=== PATIENT | male | born 1950 | race Caucasian/White ===

== ENCOUNTER 2022-06-12 06:51 | Observation (INO) ==
--- NOTE | 2022-05-09 10:39 | PAT Medication Instructions ---
Medication Instructions Date of Service May 09, 2022 Home Medications Medication Instructions Recorded nitroglycerin 0.4 mg sublingual 0.4 mg sublingual Q5M PRN chest 04/30/21 tablet pain #25 tabs rosuvastatin 5 mg tablet 5 mg PO .COMPLEX #24 tabs 08/15/21 Incentive Spirometer #1 ea 02/28/22 albuterol sulfate 90 mcg/actuation 2 puff inhalation Q6H PRN 02/28/22 aerosol inhaler shortness of breath or wheezing #8.5 grams cholecalciferol (vitamin D3) 125 mcg (5,000 unit) capsule 125 mcg PO HS methadone 10 mg tablet 10 mg PO Q8H oxycodone-acetaminophen 5 mg-325 mg tablet 1 tab PO Q8H PRN Pain vitamin E (dl, acetate) 180 mg (400 unit) capsule 180 mg PO HS nitroglycerin 0.4 mg sublingual tablet 0.4 mg sublingual Q5M PRN chest pain rosuvastatin 5 mg tablet 5 mg PO .COMPLEX albuterol sulfate 90 mcg/actuation aerosol inhaler 2 puff inhalation Q6H PRN shortness of breath or wheezing ezetimibe 10 mg tablet 10 mg PO HS fluticasone fur. 100 mcg-umeclid 62.5 mcg-vilant 25 mcg inhalat.powder (Trelegy Ellipta) 1 inh inhalation QAM Continue as directed nitroglycerin 0.4 mg sublingual tablet 0.4 mg sublingual Q5M PRN chest pain (if needed) rosuvastatin 5 mg tablet 5 mg PO .COMPLEX STOP taking 2 weeks before surgery (or as soon as possible if surgery is within 2 weeks) vitamin E (dl, acetate) 180 mg (400 unit) capsule 180 mg PO HS Take morning of surgery With a small sip of water, OTHERWISE NOTHING TO EAT OR DRINK AFTER MIDNIGHT: methadone 10 mg tablet 10 mg PO Q8H oxycodone-acetaminophen 5 mg-325 mg tablet 1 tab PO Q8H PRN Pain (if needed) rosuvastatin 5 mg tablet 5 mg PO .COMPLEX albuterol sulfate 90 mcg/actuation aerosol inhaler 2 puff inhalation Q6H PRN shortness of breath or wheezing (use if needed; please bring rescue inhaler with you to hospital day of surgery if possible) fluticasone fur. 100 mcg-umeclid 62.5 mcg-vilant 25 mcg inhalat.powder (Trelegy Ellipta) 1 inh inhalation QAM Take evening before surgery cholecalciferol (vitamin D3) 125 mcg (5,000 unit) capsule 125 mcg PO HS methadone 10 mg tablet 10 mg PO Q8H oxycodone-acetaminophen 5 mg-325 mg tablet 1 tab PO Q8H PRN Pain (if needed) albuterol sulfate 90 mcg/actuation aerosol inhaler 2 puff inhalation Q6H PRN shortness of breath or wheezing (if needed) ezetimibe 10 mg tablet 10 mg PO HS Other Notes If you have any questions please call us at [phone] or [phone] or [phone] or [phone]
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
--- NOTE | 2022-05-16 15:14 | Electrocardiogram Report ---
Test Reason : Blood Pressure : / mmHG Vent. Rate : 080 BPM Atrial Rate : 080 BPM P-R Int : 136 ms QRS Dur : 082 ms QT Int : 380 ms P-R-T Axes : 083 078 076 degrees QTc Int : 438 ms Normal sinus rhythm Normal ECG No previous ECGs available Confirmed by Brennan Felix ([id number]) on 05/16/2022 3:14:39 PM Referred By: Sushil Santos Confirmed By:Gideon Felix
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
[~2022-06-12 06:51] MED LIST: ACETAMINOPHEN 500 MG TAB PO SCH; BUPIVACAINE 0.5 % 5 MG/1 ML PF 10ML VIAL ONE; CeleBREX 200 MG CAP PO SCH; FAMOTIDINE 20 MG TAB PO SCH; GABAPENTIN 300 MG CAP PO SCH; LR 15ML/HR IV SCH; METOCLOPRAMIDE HCL 10 MG TABLET PO SCH; TRANEXAMIC ACID 1,000 MG **IV Pre-op IV SCH; ceFAZolin 2000MG 2,000 MG/15 ML SYR IV SCH; dexAMETHasone 4 MG TAB PO SCH
[2022-06-12] MEDS ORDERED: fentaNYL citrate 100 MCG/2 ML VIAL ONE (07:22)
[2022-06-12] MEDS ORDERED: MIDAZOLAM HCL 1 MG/ML 2ML VIAL ONE (07:22)
[2022-06-12] MEDS ORDERED: SUGAMMADEX SODIUM 200 MG/2 ML VIAL IV ONE (07:25)
--- NOTE | 2022-06-12 07:25 | History & Physical Bridge Note ---
Date of Service June 12, 2022 History & Physical Bridge Note I have examined the patient, reviewed the History & Physical and in the interval since the performance of the History & Physical I have noted the following changes of clinical significance: no changes noted
[2022-06-12] MEDS ORDERED: NALOXONE HCL 0.4 MG/1 ML VIAL/CARP IV PRN ×2 (08:39→12:31)
[2022-06-12] MEDS ORDERED: ONDANSETRON INJ 2 MG/ML 2 ML VIAL IV PRN ×2 (08:39→12:31)
[2022-06-12] MEDS ORDERED: HYDROmorphone INJ 1 MG/ML SYRINGE IV PRN (08:39)
[2022-06-12] MEDS ORDERED: ATROPINE SULFATE 0.1 MG/ML 10ML SYR IV PRN (08:39)
[2022-06-12] MEDS ORDERED: LABETALOL HCL IV 5 MG/ML 20ML IV PRN (08:39)
[2022-06-12] MEDS ORDERED: fentaNYL citrate 100 MCG/2 ML VIAL IV PRN (08:39)
[2022-06-12] MEDS ORDERED: ePHEDrine sulfate 50 MG/ML AMP IV PRN (08:39)
[2022-06-12] MEDS ORDERED: PROMETHAZINE HCL 12.5 MG in SODIUM CHLORIDE 0.9% 50 ML IV PRN (08:39)
[2022-06-12] MEDS ORDERED: FLUMAZENIL 0.1 MG/1 ML 10 ML VIAL IV PRN (08:39)
[2022-06-12] MEDS ORDERED: ONDANSETRON INJ 2 MG/ML 2 ML VIAL ONE (09:39)
[2022-06-12] MEDS ORDERED: DEXAMETHASONE SOD INJ 4 MG/ML VIAL ONE (09:39)
[2022-06-12] MEDS ORDERED: SUCCINYLCHOLINE CHLORIDE 20 MG/ML 10 ML VIAL IV ONE (09:39)
[2022-06-12] MEDS ORDERED: PROPOFOL IV EMULSION 10 MG/ML 20 ML VIAL IV ONE (09:39)
[2022-06-12] MEDS ORDERED: ROCURONIUM BROMIDE 10 MG/ML 5 ML VIAL IV ONE (09:39)
[2022-06-12] MEDS ORDERED: GLYCOPYRROLATE 0.2 MG/ML VIAL ONE (09:39)
[2022-06-12] MEDS ORDERED: PHENYLEPHRINE 100MCG/ML 5ML SYR ONE (09:40)
--- NOTE | 2022-06-12 11:02 | Operative Report ---
Post Operative Report Pre & Post Diagnosis Operation Date: 06/12/22 09:05 Pre-Op Diagnosis: Left shoulder rotator cuff tear arthropathy Post-Op Diagnosis: Left shoulder rotator cuff tear arthropathy I identified the patient and participated in the time-out.: Yes Procedure Operation Date: 06/12/22 09:05 Actual Procedures Left reverse total shoulder arthroplasty (29376) - Sushil Santos M.D. Surgeon Sushil Santos Transaction Manager Simba Candelario PA-C Estimated Blood Loss 75 Findings Consistent with Post-Op Diagnosis Specimens None Drains None Anesthesia Type General Regional Complications none Disposition Disposition: Recovery Room Indications Mr. Hernandez is a 71-year-old male with chronic left shoulder pain and weakness after previous rotator cuff repair. History, clinical exam, and imaging were consistent with the above diagnosis. Risks, benefits, and alternatives of surgery were explained in detail. The patient understood all this and wished to proceed. Description of Procedure Components Implanted: Tornier Reverse Total Shoulder implants Perform glenoid baseplate: 29mm, 15 degree full wedge with 6.5mm central screw and 5.0mm peripheral screws Glenosphere: 39mm, +3mm, eccentric offset Ascend Flex humeral stem: 4B Standard length (78mm) Humeral tray: 1.5 mm offset, +0mm thickness Polyethylene insert: 39mm, +6mm thickness Patient was identified in the preoperative holding area. Operative extremity was marked. Regional blockade was given by the Anesthesia Staff. Patient was then brought back to the operating room, and general anesthesia was induced without complication. Appropriate weight-based dose of Ancef was infused intravenously for antibiotic prophylaxis. The patient was then placed in the beachchair position. Left arm was then prepped and draped in a standard sterile fashion using Chlorhexidine prep. A standard deltopectoral incision was made through the skin and subcutaneous tissue. The cephalic vein was identified and retracted medially. Small branches to the deltoid were coagulated as necessary. The clavipectoral fascia was then incised and the subdeltoid space was opened. The rotator cuff was found to be deficient, and I therefore decided to perform a reverse total shoulder arthroplasty as planned preoperatively. The biceps tendon was noted to be absent from the bicipital groove, consistent with a preoperative biceps tendon rupture. Therefore, no biceps tenodesis was performed. The remaining subscapularis tendon was elevated subperiosteally off of the lesser tuberosity. The glenohumeral joint was then dislocated, and large osteophytes were debrided with a ronguer. The intramedullary canal of the humerus was then opened with a canal finder. The humeral head cut was then made in the appropriate inclination and version using the cutting guide. The humeral canal was then sequentially broached to the appropriate size. A protective cap was then placed on top of the humeral trial. I then turned my attention to the glenoid. The proximal stump of the biceps tendon was excised, along with the labrum circumferentially around the glenoid. The Blueprint drill guide was then positioned on the glenoid, and the guidepin was then inserted. The 15 degree angled reamer was then inserted over the guidepin and an reamed to an appropriate depth. The central screw hole was drilled, and appropriate length 6.5mm central screw was selected. The baseplate was then implanted into place according to our preoperative Blueprint plan by tightening down the central screw. A peripheral 5mm nonlocking screw was placed postero-superiorly first for additional compression of the baseplate, and then additional locking 5 mm peripheral screws were placed to complete fixation of the baseplate. Glenosphere was then impacted and secured. A trial humeral tray and insert were placed on the trial humeral stem, and a trial reduction was carried out. Once I achieved acceptable joint stability and range of motion with the trial implants, the final humeral implants were assembled on the back table and then impacted into position. I then took the shoulder through full range of motion to ensure good stability and acceptable motion. Wound was then copiously irrigated with sterile saline. Deep fascia was closed with 0 V-lock suture. Subcutaneous tissue was closed with 2-0 V-lock, and skin was closed with 3-0 V-lock. Skin was then sealed with Dermabond. Sterile dressings were then applied with a waterproof silver-impregnated dressing, and the arm was placed into a sling. The patient was awakened from anesthesia and taken to the Post Anesthesia Care Unit in stable condition. There were no immediate complications from the procedure. I was present and scr ubbed for the entire procedure, with the exception of final skin closure and dressing application. Due to the complex nature of the procedure, the entire surgery was performed with the operational assistance of Simba Candelario PA-C. The entry level assistant manager, under direct supervision, was involved in the performance of all aspects of the surgical procedure including hemostasis, tissue incision and retraction, instrument management, patient positioning, and wound closure. I attest to the content of the Intraoperative Record and any orders documented therein. Any exceptions are noted below.
--- NOTE | 2022-06-12 12:07 | Anesthesiology Progress Note ---
Date of Service June 12, 2022 Anesthesia Post Procedure Vital Signs Vital Signs: Temp Pulse Resp BP Pulse Ox O2 Del Method O2 Flow Rate 06/12/22 11:50 36.6 C 78 15 134/75 94 Room Air 06/12/22 11:40 81 15 134/77 94 Room Air 06/12/22 11:30 76 15 148/77 H 100 Oxymask 4 06/12/22 11:20 74 13 173/90 H 100 Oxymask 6 06/12/22 11:14 36.0 C L 79 14 163/96 H 98 Oxymask 8 06/12/22 07:39 36.7 C 92 H 20 154/91 H 98 Room Air Pain Intensity Left Shoulder: Pain Intensity: 6 Transfer of Care Handoff Completed per policy Notes Mental Status: alert / awake / arousable Patient Amnestic to Procedure: Yes Nausea / Vomiting: adequately controlled Pain: adequately controlled Airway Patency, RR, SpO2: stable & adequate BP & HR: stable & adequate Hydration State: stable & adequate Anesthetic Complications: no major complications apparent
[2022-06-12] MEDS ORDERED: oxyCODONE HCL IR 5 MG TAB (IMMEDIATE RELEASE) PO PRN (12:31)
[2022-06-12] MEDS ORDERED: METOCLOPRAMIDE HCL INJ 5 MG/ML 2 ML VIAL IV PRN (12:31)
[2022-06-12] MEDS ORDERED: NITROGLYCERIN SL 0.4 MG/TAB TAB SL PRN (12:31)
[2022-06-12] MEDS ORDERED: ALBUTEROL HFA 8 GM INHALER INH PRN (12:31)
[2022-06-12] MEDS ORDERED: bisacodyL 10 MG SUPP PR PRN (12:31)
[2022-06-12] MEDS ORDERED: MAGNESIUM HYDROXIDE SUSP 30 ML UDC PO PRN (12:31)
[2022-06-12] MEDS ORDERED: ROSUVASTATIN CALCIUM 5 MG TAB PO SCH (13:00)
[2022-06-12] MEDS: SODIUM CHLORIDE 0.9% 1000ML 1,000 ML IV SCH ×2 (13:59→23:39)
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
[2022-06-12] MEDS: ACETAMINOPHEN 500 MG TAB PO SCH ×3 (14:30→23:40)
[2022-06-12] MEDS: IBUPROFEN 600 MG TAB PO SCH ×2 (14:33→21:18)
[2022-06-12] MEDS: METHADONE HCL 10 MG TAB PO SCH ×2 (14:33→21:18)
--- NOTE | 2022-06-12 16:12 | XRay Report ---
XR shoulder LT min 2V routine CLINICAL HISTORY: Post shoulder surgery COMPARISON: None FINDINGS: Intracanalicular electrodes are incidentally noted. Alignment of the left shoulder arthrop lasty is anatomic. No periprosthetic fracture or unexpected radiopaque foreign body. IMPRESSION: Expected findings following total left shoulder arthroplasty. ACT 112: Negative or not required by law. Electronically signed by: Nura Tolbert M.D. 06/12/2022 4:11 PM
[2022-06-12] MEDS: ceFAZolin 2000MG 2,000 MG/15 ML SYR IV SCH (18:17)
[2022-06-12] MEDS ORDERED: SENNA 8.6 MG TAB PO SCH (21:00)
[2022-06-12] MEDS ORDERED: TOCOPHERYL, DL-ALPHA 400 UNITS 180 MG CAP PO SCH (21:00)
[2022-06-12] MEDS ORDERED: CHOLECALCIFEROL 5,000 UNITS 125 MCG TAB PO SCH (21:00)
[2022-06-12] MEDS ORDERED: EZETIMIBE 10 MG TABLET PO SCH (21:00)
[2022-06-12] MEDS: DOCUSATE SODIUM 100 MG CAP PO SCH (21:18)
[2022-06-13] MEDS: IBUPROFEN 600 MG TAB PO SCH ×2 (02:18→09:49)
[2022-06-13] MEDS: ceFAZolin 2000MG 2,000 MG/15 ML SYR IV SCH (02:19)
[2022-06-13] MEDS: ACETAMINOPHEN 500 MG TAB PO SCH (05:59)
[2022-06-13] MEDS: METHADONE HCL 10 MG TAB PO SCH (06:00)
[2022-06-13 07:45] LABS: Basophils # (auto) 0.01 K/uL (0-0.2); Basophils % (auto) 0.1 %; Hematocrit (blood only) 37.2 % (40.1-51.0); Hemoglobin 12.5 g/dl (14.0-18.0); Immature Granulocytes # (auto) 0.04 K/uL (0.00-0.02); Immature Granulocytes % (auto) 0.3 %; Lymphocytes # (auto) 1.92 K/uL (1.2-3.4); Lymphocytes % (auto) 16.5 %; Mean Corpuscular Hemoglobin 27.8 pg (25.0-34.0); Mean Corpuscular Hgb Conc 33.6 g/dL (32.0-36.0); Mean Corpuscular Volume 82.7 fL (80.0-100.0); Mean Platelet Volume 8.8 fL (9.4-12.4); Monocytes # (auto) 1.14 K/uL (0.24-0.82); Monocytes % (auto) 9.8 %; Neutrophils # (auto) 8.52 K/uL (1.4-6.5); Neutrophils % (auto) 73.3 %; Platelet Count 226 K/uL (130-400); RDW Coefficient of Variation 12.5 % (11.5-14.5); White Blood Count 11.63 K/ul (4.8-10.8)
[2022-06-13 08:04] LABS: Calcium 8.6 mg/dl (8.5-10.1); Creatinine Clr Calc Pharmacy 88.5 ml/min; Est GFR (African American) 105.5 ml/min; Potassium 3.9 mmol/L (3.5-5.1)
[2022-06-13] MEDS ORDERED: MULTIVITAMIN TAB PO SCH (09:00)
[2022-06-13] MEDS ORDERED: FLUTICASONE FUROATE 100MCG 14 PUFFS/INHALER INH SCH (09:00)
[2022-06-13] MEDS ORDERED: NON-FORMULARY MEDICATION (Fluticasone-Umeclidin-Vilanter [Trelegy Ellipta] 100-62.5-25 mcg INH SCH (09:00)
[2022-06-13] MEDS ORDERED: ASPIRIN 325 MG ECTAB PO SCH (09:00)
[2022-06-13] MEDS ORDERED: UMECLIDINIUM/VILANTEROL 62.5/25MCG 7 PUFFS/INHALER INH SCH (09:00)
--- NOTE | 2022-06-13 09:26 | Orthopedic Progress Note ---
Date of Service June 13, 2022 Assessment & Plan (1) Left rotator cuff tear arthropathy: Plan: Postop day 1 status post left reverse total shoulder arthroplasty PT/OT protocols. Nonweightbearing left upper extremity. DVT prophylaxis-aspirin p.o. daily, SCDs Pain management as written. DC planning-patient is planning for discharge to home with outpatient PT upon discharge. Plan for discharge to home today. Admission and Anticipated Discharge Date Admission Date: June 12, 2022 Subjective Postop day 1 Patient is sitting up in his chair at the bedside finishing his breakfast. He has no complaints this morning. Pain is controlled. He denies shortness of breath, chest pain. He is hoping to go home today. Physical Exam Physical Exam: Silverlon dressing is intact. Sling is in place. Patient is able to take his hand through gentle range of motion with his wrist and his fingers. He continues with decreased sensation in all of his fingers secondary to his nerve block. Capillary refill is less than 2 seconds. Results & Data ([facility]) Vital Signs (Past 12 Hours) Vital Signs Temp Pulse Pulse Resp BP Pulse Ox O2 Del Method 06/13/22 07:59 36.6 C 82 17 122/62 94 Room Air 06/13/22 04:58 36.4 C L 73 16 150/74 H 96 Nasal Cannula 06/13/22 00:17 36.4 C L 70 18 128/72 97 Nasal Cannula O2 Flow Rate 06/13/22 07:59 06/13/22 04:58 2 06/13/22 00:17 2 Laboratory Results Laboratory Results WBC 11.63 K/ul (4.8-10.8) H 06/13/22 07:03 RBC 4.50 M/uL (4.63-6.08) L 06/13/22 07:03 Hgb 12.5 g/dl (14.0-18.0) L 06/13/22 07:03 Hct 37.2 % (40.1-51.0) L 06/13/22 07:03 MCV 82.7 fL (80.0-100.0) 06/13/22 07:03 MCH 27.8 pg (25.0-34.0) 06/13/22 07:03 MCHC 33.6 g/dL (32.0-36.0) 06/13/22 07:03 RDW Std Deviation 38.0 fL (36.4-46.3) 06/13/22 07:03 RDW Coeff of Justine 12.5 % (11.5-14.5) 06/13/22 07:03 Plt Count 226 K/uL (130-400) 06/13/22 07:03 MPV 8.8 fL (9.4-12.4) L 06/13/22 07:03 Immature Gran % (Auto) 0.3 % 06/13/22 07:03 Neut % (Auto) 73.3 % 06/13/22 07:03 Lymph % (Auto) 16.5 % 06/13/22 07:03 Ogle % (Auto) 9.8 % 06/13/22 07:03 Eos % (Auto) 0.0 % 06/13/22 07:03 Baso % (Auto) 0.1 % 06/13/22 07:03 Neut # (Auto) 8.52 K/uL (1.4-6.5) H 06/13/22 07:03 Lymph # (Auto) 1.92 K/uL (1.2-3.4) 06/13/22 07:03 Ogle # (Auto) 1.14 K/uL (0.24-0.82) H 06/13/22 07:03 Eos # (Auto) 0.00 K/uL (0-0.50) 06/13/22 07:03 Baso # (Auto) 0.01 K/uL (0-0.2) 06/13/22 07:03 Immature Gran # (Auto) 0.04 K/uL (0.00-0.02) H 06/13/22 07:03 Sodium 139 mmol/L (136-145) 06/13/22 07:03 Potassium 3.9 mmol/L (3.5-5.1) 06/13/22 07:03 Chloride 106 mmol/L (98-107) 06/13/22 07:03 Carbon Dioxide 28 mmol/L (21-32) 06/13/22 07:03 Anion Gap 5 (3-11) 06/13/22 07:03 BUN 12 mg/dl (6-23) 06/13/22 07:03 Creatinine 0.75 mg/dl (0.6-1.4) 06/13/22 07:03 Est Cr Clr Drug Dosing 88.5 ml/min 06/13/22 07:03 Est GFR ( Amer) 105.5 ml/min 06/13/22 07:03 Est GFR (Non-Af Amer) 91.0 ml/min 06/13/22 07:03 BUN/Creatinine Ratio 16.0 (10-20) 06/13/22 07:03 Glucose 118 mg/dl (70-99(Fasting)) H 06/13/22 07:03 Calcium 8.6 mg/dl (8.5-10.1) 06/13/22 07:03 SARS-CoV-2, RNA, NAAT NEGATIVE (NEGATIVE) 06/12/22 Unknown Impressions Shoulder X-Ray 06/12/22 11:22 XR shoulder LT min 2V routine CLINICAL HISTORY: Post shoulder surgery COMPARISON: None FINDINGS: Intracanalicular electrodes are incidentally noted. Alignment of the left shoulder arthroplasty is anatomic. No periprosthetic fracture or unexpected radiopaque foreign body. IMPRESSION: Expected findings following total left shoulder arthroplasty. ACT 112: Negative or not required by law. Electronically signed by: Nura Tolbert M.D. 06/12/2022 4:11 PM
[2022-06-13] MEDS: DOCUSATE SODIUM 100 MG CAP PO SCH (09:48)
--- NOTE | 2022-06-18 17:05 | Discharge Summary ---
Date of Service June 18, 2022 Admission HPI Per Admitting Provider Mr. Hernandez returns. Again, he is a 71-year-old [id number] male with acute on chronic left shoulder pain and weakness. He has been previously treated by Dr. Becerra in [place]. He states that he previous underwent a rotator cuff repair in 2016 for chronic pain without any acute injury. He does report that he did well after that surgery, and it helped with his pain that he was having. He notes that he did tear his biceps this past spring. He reports that over the past year, this left shoulder has gotten quite painful again, without any new injury. He has had [address] Becerra over the past year, the last one being in the springtime. These injections typically give him about 2 to 3 months improvement in his pain. He then had an acute injury at the end of January when he had a ground-level fall onto an outstretched left arm. He noticed significant worsening of his pain and weakness with that fall. He does note that he had difficulty with raising his arm overhead even before the fall, but now he has significantly decreased strength and significantly worsened pain. Of note, he does have issues with chronic pain. He previously had a morphine pump and spinal stimulator implanted, both of which are not currently functioning but are still in place. He is currently on OxyContin and methadone for his chronic pain, currently managed by his primary care physician. He is under narcotic contract. Principal Diagnosis Left shoulder rotator cuff tear arthropathy Discharge Data Allergies Allergy/AdvReac Type Severity Reaction Status Date / Time [id number] Reductase AdvReac Severe Severe leg Verified 06/12/22 07:32 Inhibitor cramps Consultations 06/12/22 05:00 Consult Hospitalist Routine Procedures Performed Operation Date: 06/12/22 09:05 Actual Procedures p Left Reverse Total Shoulder Arthroplasty--Uncemented(Left) - Sushil Santos M.D. Ordered Studies 06/12/22 05:00 US - OR guided needle placemen Routine Hospital Course (1) Left rotator cuff tear arthropathy: Patient underwent a left reverse total shoulder arthroplasty on the date of admission. Patient tolerated the procedure well and was transferred up to the general orthopedic surgery floor in stable condition. Perioperative antibiotic coverage was initiated, and continued for 24 hours postoperatively. DVT prophylaxis was initiated consisting of SCDs and aspirin 325 mg daily. Perioper ative pain control regimen was transitioned to strictly oral pain medications by postoperative day 1. On postoperative day 1 the patient was doing very well. Pain was well controlled, and patient was mobilizing well with therapy. Patient was determined be safe and ready for discharge to home. Total Time Total Time Spent Total Time Spent (In Minutes): 15 Discharge Plan Discharge Items Patient Disposition: Home - Self-Care Reason For Visit: Rotator Cuff Tear Arthropathy Left Shoulder Discharge Diagnosis: Left shoulder rotator cuff tear arthropathy Activity: Per Instructions section Weightbearing: Left non-weightbearing Non-emergency contact: Surgeon Call non-emergency contact if: your pain is not controlled, your temperature is above 101.5, your wound has increased redness and your wound has increased drainage Follow-up/Referrals: Sushil Santos M.D. [Physician] - Car Menjivar DO [Primary Care Provider] - Diet: Heart Healthy Addtl Attending Provider Instructions: Things to Watch Out For -Go to the Emergency Room if you have sudden onset of nausea, vomiting, chest pain, shortness of breath, or uncontrollable pain. -Call the clinic or go to the Emergency Room if you have a sudden increase in the amount of wound drainage or the drainage becomes thick, yellow or green, or foul-smelling. -For routine questions, call the clinic at [phone] during regular business hours (8am-5pm). For urgent issues after regular business hours, you may call the clinic to be connected to the on-call physician. Dressings -A special waterproof, silver-impregnated dressing was placed on your shoulder. Keep this dressing in place for 1 week after surgery. You may shower with the waterproof dressing in place, but do not soak the dressing in the bathtub or pool. -One week after surgery, you may remove the waterproof dressing. You may continue to shower, and let water run BRIEFLY over the incision, but do not soak the incision in the bathtub or pool for 2 weeks. You may also gently clean the incision with mild soap and water; pat the incision dry after cleaning-do not rub the incision. Apply a new dressing daily thereafter. Shoulder Exercises -Keep your operative shoulder in the sling for comfort, except as detailed below. -You should come out of the sling 4-5 times a day for passive pendulum exercises: lean over and swing your arm in a circular pattern. -You should also do active-assisted forward flexion exercises: use your opposite hand to lift your operative arm forward to 90 degrees. -Do not use your arm to push yourself up out of bed or up from a seated position. Ice Pack -You may use an ice pack for pain relief. You should use it 20-30 minutes at a time. Place a towel between the ice pack and your skin to prevent frostbite. -You should use the ice pack fairly regularly for the first 1-2 weeks after surgery to help reduce pain and inflammation. -About 2 weeks after your surgery, you should start using heat to loosen up your shoulder prior to doing your stretching exercises, then use the cooling sleeve after your exercises are complete to reduce swelling and pain. Pain Medicines -Your prescriptions for pain medications have already been sent to the pharmacy on file at [facility]. -You have been prescribed an anti-inflammatory (Motrin/ibuprofen) and a non- narcotic pain medicine (Tylenol/acetaminophen). These are your primary pain medications. Take them each every 6 hours as instructed. It is recommended that you stagger these medicines every 3 hours (i.e. take ibuprofen at 8:00 am, then acetaminophen at 11:00 am, then ibuprofen at 2:00 pm, etc) -DO NOT take any additional anti-inflammatories (Advil, Aleve/naproxen, Mobic/meloxicam, Celebrex) or any additional Tylenol/acetaminophen products with these prescribed medications. -You have also been prescribed an additional narcotic pain medication (oxycodone). Take this medicine ONLY for breakthrough pain not controlled by the ibuprofen and acetaminophen. -Do not drive or operate heavy machinery while taking the narcotic medication. -Common side effects of narcotic pain medicines include itching, nausea, constipation, and feeling "loopy". However, if you develop a rash or hives, stop taking the medicine and call the clinic. If you develop swelling in your throat or difficulty breathing, go to the Emergency Room or call 911 IMMEDIATELY. -You may take over the counter stool softeners if needed for constipation. Aspirin -Take a full strength (325mg) aspirin every day for 4 weeks (28 days) to prevent blood clots. -If you were taking a baby aspirin (81mg) prior to surgery, you may resume taking this 81mg dose after you complete the 28-day course of the 325mg strength dose; do not take the 325mg dose in addition to your 81mg dose. -Be aware that you will bruise easier while taking Aspirin; this is normal. However, if you develop a significantly large area of swelling after an injury, or have a cut that will not stop bleeding, call the clinic or go to the Emergency Room immediately. Pending Studies at Discharge: No Stand-Alone Forms: My [facility] Medications and DC Order Prescriptions: Continued nitroglycerin 0.4 mg tablet, sublingual 0.4 mg sublingual Q5M PRN (Reason: chest pain) Qty: 25 1RF Rx Instructions: until response; do not exceed 3 doses per episode rosuvastatin 5 mg tablet 5 mg PO .COMPLEX Qty: 24 3RF Rx Instructions: 5 mg PO Mondays and ; methadone 10 mg tablet 10 mg PO Q8H Label Comments: FOR PAIN CONTROL cholecalciferol (vitamin D3) 125 mcg (5,000 unit) capsule 125 mcg PO HS vitamin E (dl, acetate) 180 mg (400 unit) capsule 180 mg PO HS albuterol sulfate 90 mcg/actuation HFA aerosol inhaler 2 puff inhalation Q6H PRN (Reason: shortness of breath or wheezing) Qty: 8.5 3RF (DME) Incentive Spirometer Misc See Rx Instructions .MEDSUPPLY Qty: 1 0RF Rx Instructions: As directed ezetimibe [Zetia] 10 mg tablet 10 mg PO HS Trelegy Ellipta 100-62.5-25 mcg blister with device 1 inh inhalation QAM Discontinued oxycodone-acetaminophen 5-325 mg tablet 1 tab PO Q8H PRN (Reason: Pain) Discharge Orders: Discharge Order (Routine); Ordered 06/13/22 Ordered By: Lamine Moses/Other Patient Handouts: ED RICE Admission Data Admit Date/Time: 06/12/22 11:22 Attending Provider: Sushil Santos Admit Provider: Sushil Santos Primary Care Provider: Car Menjivar Other Providers: Aayush Reynolds Other Interventions: Discharge Summary Assessment (RN) Last Done: 06/13/22 10:44
== END 2022-06-13 11:48 | disposition home or self-care (01) ==
LOC: ASU 06:51 → PACUINP 11:22 → INTOOBSV 11:22 → 3E 13:53
DX: Z87.891 Personal history of nicotine dependence; G89.29 Other chronic pain; Z88.8 Allergy status to other drugs, medicaments and biological substances; M54.50 Low back pain, unspecified; I25.10 Atherosclerotic heart disease of native coronary artery without angina pectoris; N40.0 Benign prostatic hyperplasia without lower urinary tract symptoms; J44.9 Chronic obstructive pulmonary disease, unspecified; Z20.822 Contact with and (suspected) exposure to COVID-19; M12.512 Traumatic arthropathy, left shoulder; Z86.16 Personal history of COVID-19; Z79.899 Other long term (current) drug therapy